=== PATIENT | male | born 1965 ===

== ENCOUNTER 2020-06-25 10:35 | Observation (INO) | payer OTHER, SELFPAY ==
[2020-06-25] MEDS ORDERED: levETIRAcetam 1000 MG/NS 0.75% 1,000 MG/100 ML BAG IV ONE (10:53)
--- NOTE | 2020-06-25 10:55 | Consultation ---
History of Present Illness History of present illness: [facility] Date of Service: 06/25/2020 10:24:18 Impression: R56.9 - Seizures Comments/Sign-Out: Patient with onset of LUE shaking then loss of awareness. He is nearly back to baseline with the exception of a left facial droop - would not pursue a stroke intervention for this mild deficit. Suspect he had a focal onset seizure with secondary generalization - he has a focus for this, as his CT shows large RMCA territory encephalomalacia. Metrics: Last Known Well: 06/25/2020 10:00:00 [facility] Notification Time: 06/25/2020 10:23:52 Arrival Time: 06/25/2020 10:35:00 Stamp Time: 06/25/2020 10:24:18 Time First Login Attempt: 06/25/2020 10:28:00 Video Start Time: 06/25/2020 10:28:00 Symptoms: found down, left-sided weakness NIHSS Start Assessment Time: 06/25/2020 10:36:00 Patient is not a candidate for Alteplase/Activase. Patient was not deemed candidate for Alteplase/Activase thrombolytics because of only minor residual deficits - improving, low suspicion for stroke.. Video End Time: 06/25/2020 10:49:00 CT head showed no acute hemorrhage or acute core infarct. Clinical Presentation is not Suggestive of Large Vessel Occlusive Disease ED Physician notified of diagnostic impression and management plan on 06/25/2020 10:52:00 Our recommendations are outlined below. Recommendations: MRI brain wo if facial droop persists Start Keppra 500mg BID Toxic/metabolic screening Would not pursue EEG, as he has no evidence of active convulsive activity and he has a known substrate for seizure Seizure precautions Lorazepam 1-2mg IV PRN seizure > 5min Routine Consultation with Inhouse Neurology for Follow up Care Sign Out: Discussed with Emergency Department Provider History of Present Illness: Patient is a 54 year old Male. Patient was brought by EMS for symptoms of found down, left-sided weakness Patient brought from home by EMS after being found down by family this morning. 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 Patient also reports a history of seizures since his stroke, with his last one being 2 months ago. Patient does not take any medication or have any routine medical care. He was last normal today at 1000 and then started having involuntary shaking of the left arm. He lost awareness and family found him down. EMS was summoned and he was regaining awareness, but had weakness on the left side, so a stroke alert was called. Examination: BP(138/86), Pulse(128), Blood Glucose(150) 1A: Level of Consciousness - Alert; keenly responsive + 0 1B: Ask Month and Age - Both Questions Right + 0 1C: Blink Eyes & Squeeze Hands - Performs Both Tasks + 0 2: Test Horizontal Extraocular Movements - Normal + 0 3: Test Visual Marcelo - No Visual Loss + 0 4: Test Facial Palsy (Use Grimace if Obtunded) - Partial paralysis (lower face) + 2 5A: Test Left Arm Motor Drift - No Drift for 10 Seconds + 0 5B: Test Right Arm Motor Drift - No Drift for 10 Seconds + 0 6A: Test Left Leg Motor Drift - No Drift for 5 Seconds + 0 6B: Test Right Leg Motor Drift - No Drift for 5 Seconds + 0 7: Test Limb Ataxia (FNF/Heel-Zhou) - No Ataxia + 0 8: Test Sensation - Normal; No sensory loss + 0 9: Test Language/Aphasia - Normal; No aphasia + 0 10: Test Dysarthria - Normal + 0 11: Test Extinction/Inattention - No abnormality + 0 NIHSS Score: 2 Patient/Family was informed the Neurology Consult would happen via TeleHealth consult by way of interactive audio and video telecommunications and consented to receiving care in this manner. Due to the immediate potential for life-threatening deterioration due to underlying acute neurologic illness, I spent 30 minutes providing critical care. This time includes time for face to face visit via telemedicine, review of medical records, imaging studies and discussion of findings with providers, the patient and/or family. Dr Perez Narvaez [facility] Case [id number] Medications and Allergies Allergies Allergy/AdvReac Type Severity Reaction Status Date / Time No Known Allergies Allergy Unverified 06/25/20 10:38 Active Meds: Active Medications Levetiracetam (Keppra 1,000 Mg/Ns 0.75% 100ml) 1,000 mg in 100 mls @ 400 mls/hr IV ONCE ONE Stop: 06/25/20 11:07
--- NOTE | 2020-06-25 11:06 | Emergency Department Report ---
HPI - General Time Seen by Provider: 06/25/20 10:53 - HPI HPI: Room 3 The patient is a 54-year-old male present with a chief complaint of left-sided weakness. The patient states he remembers his left arm shaking and then falling to the ground. At approximately 10: 00 family found the patient on the floor at home with left-sided weakness and left facial droop which has been new. The patient had a history of a previous CVA with residual left hand weakness with weakness in the leg is new. ED Past Medical Hx - Past Medical History Hx CVA: Yes (Residual left hand weakness) Hx Seizures: Yes - Surgical History Past Surgical History?: No - Family History Family history: no significant - Social History Smoking Status: Never Smoker Substance Use Type: None (Denies illicit drug use), Alcohol (Occasional) ED Review of Systems ROS: Stated complaint: STROKE Other details as noted in HPI Constitutional: no symptoms reported Eyes: denies: eye pain ENT: denies: throat pain Respiratory: no symptoms reported Cardiovascular: denies: chest pain Endocrine: no symptoms reported Gastrointestinal: denies: abdominal pain Genitourinary: denies: dysuria Musculoskeletal: denies: back pain Neurological: weakness Physical Exam - Physical Exam Physical Exam: GENERAL: The patient is well-developed well-nourished male lying on stretcher not appearing to be in acute distress. [] HEENT: Normocephalic. Atraumatic. Extraocular motions are intact. Patient has moist mucous membranes. NECK: Supple. Trachea midline CHEST/LUNGS: Clear to auscultation. There is no respiratory distress noted. HEART/CARDIOVASCULAR: Regular. There is no tachycardia. There is no gallop rub or murmur. ABDOMEN: Abdomen is soft, nontender. Patient has normal bowel sounds. There is no abdominal distention. SKIN: There is no rash. There is no edema. There is no diaphoresis. NEURO: The patient is awake, alert, and oriented. The patient is cooperative. Cranial nerves II through XII grossly intact with exception of cranial nerve VII on the left and cranial nerve XII (tongue deviates left when protruded). The patient has normal speech. Moves all extremities well. Sensation to light touch equal bilaterally. GCS 15 MUSCULOSKELETAL: There is no evidence of acute injury. ED Medical Decision Making - Lab Data Result diagrams: 06/25/20 10:56 06/25/20 10:56 Laboratory Tests 06/25/20 06/25/20 06/25/20 10:56 10:56 10:56 WBC 7.4 RBC 4.40 Hgb 14.4 Hct 41.8 MCV 95 H MCH 33 H MCHC 35 H RDW 13.2 Plt Count 175 Lymph % (Auto) 17.6 [place] % (Auto) 5.3 Eos % (Auto) 0.7 Baso % (Auto) 0.4 Lymph # (Auto) 1.3 [place] # (Auto) 0.4 Eos # (Auto) 0.1 Baso # (Auto) 0.0 Seg Neutrophils % 76.0 H Seg Neutrophils # 5.6 PT 13.6 INR 1.05 APTT 23.1 L Sodium 137 Potassium 3.9 Chloride 99.5 Carbon Dioxide 24 Anion Gap 17 BUN 9 Creatinine 0.9 Estimated GFR > 60 BUN/Creatinine Ratio 10 Glucose 235 H POC Glucose Calcium 9.1 Troponin T < 0.010 06/25/20 11:18 WBC RBC Hgb Hct MCV MCH MCHC RDW Plt Count Lymph % (Auto) [place] % (Auto) Eos % (Auto) Baso % (Auto) Lymph # (Auto) [place] # (Auto) Eos # (Auto) Baso # (Auto) Seg Neutrophils % Seg Neutrophils # PT INR APTT Sodium Potassium Chloride Carbon Dioxide Anion Gap BUN Creatinine Estimated GFR BUN/Creatinine Ratio Glucose POC Glucose 201 H Calcium Troponin T - EKG Data -: EKG Interpreted by Nh EKG shows normal: sinus rhythm Rate: tachycardia (116 bpm) - EKG Data When compared to previous EKG there are: previous EKG unavailable Interpretation: other (No ischemic changes seen) - Radiology Data Radiology results: report reviewed (CT head), image reviewed (CT head) Findings [facility] [address] [place] [address] Cat Scan Report Signed Patient: DOLYE SHOEMAKER MR#: [id number] : 1965 Acct:[id number] Age/Sex: 54 / M ADM Date: 06/25/20 Loc: ED Attending Dr: Ordering Physician: LUIS ALBERTO NORTON MD Date of Service: 06/25/20 Procedure(s): CT head/brain wo con Accession Number(s): [id number] cc: LUIS ALBEROT NORTON MD NONENHANCED CT SCAN OF THE HEAD: INDICATION / CLINICAL INFORMATION: 54 years Male; neuro deficits <6 hours TECHNIQUE: Routine CT head without contrast. All CT scans at this location are performed using CT dose reduction for ALARA by means of automated exposure control. COMPARISON: None. FINDINGS: BRAIN / INTRACRANIAL CONTENTS: Right frontal craniotomy; encephalomalacia in the right temporal lobe, right putamen and in the right frontal lobe. No acute hemorrhage, mass effect, midline shift, hydrocephalus, or acute, large territorial infarct. No chronic infarct or focal atrophy. Normal brain volume and ventricular/sulcal size for age. No significant white matter abnormality. CRANIOCERVICAL JUNCTION: No significant abnormality. ORBITS: No significant abnormality of visualized orbits. SINUSES / MASTOIDS: No significant abnormality ADDITIONAL FINDINGS: None. IMPRESSION: Encephalomalacia in the right cerebral hemisphere; no CT findings to suggest acute territorial infarction; no hemorrhage or stroke mimics CODE STROKE: Time of Communication (REGIONAL COORDINATOR/CDT): 10:34 AM Central standard time Licensed Practitioner Receiving Report: ER physician Signer Name: Emily Brown MD Signed: 06/25/2020 11:37 AM Workstation Name: [id number] Transcribed By: BS Dictated By: Emily Alvarez MD Jennifer ctronically Authenticated By: Emily Alvarez MD Signed Date/Time: 06/25/20 1137 DD/ 1128 TD/TT: - Differential Diagnosis Seizure, Harsh's paralysis, CVA, TIA Critical care attestation.: If time is entered above; I have spent that time in minutes in the direct care of this critically ill patient, excluding procedure time. ED Disposition Clinical Impression: Left-sided weakness Disposition: DC-09 OP ADMIT IP TO THIS HOSP Is pt being admited?: Yes Does the pt Need Aspirin: Yes Condition: Fair Time of Disposition: 11:48 (Hospitalist paged 9Dr Taco))
[2020-06-25 11:14] LABS: Basophils % (Auto) 0.4 % (0.0-1.8); Eosinophils # (Auto) 0.1 K/mm3 (0.0-0.4); Eosinophils % (Auto) 0.7 % (0.0-4.3); Hematocrit 41.8 % (35.5-45.6); Hemoglobin 14.4 gm/dl (11.8-15.2); Lymphocytes # (Auto) 1.3 K/mm3 (1.2-5.4); Lymphocytes % (Auto) 17.6 % (13.4-35.0); Mean Corpuscular HGB Conc 35 % (32-34); Mean Corpuscular Volume 95 fl (84-94); Monocytes # (Auto) 0.4 K/mm3 (0.0-0.8); Monocytes % (Auto) 5.3 % (0.0-7.3); Platelet Count 175 K/mm3 (140-440); Red Cell Distribution Width 13.2 % (13.2-15.2)
[2020-06-25 11:23] LABS: INR 1.05 (0.87-1.13); Partial Thromboplastin Time 23.1 Sec. (24.2-36.6)
[2020-06-25 11:28] LABS: BUN/Creatinine Ratio 10; Blood Urea Nitrogen 9 mg/dL (9-20); Calcium 9.1 mg/dL (8.4-10.2); Hemolysis Index 11
--- NOTE | 2020-06-25 11:41 | Cat Scan Report ---
NONENHANCED CT SCAN OF THE HEAD: INDICATION / CLINICAL INFORMATION: 54 years Male; neuro deficits <6 hours TECHNIQUE: Routine CT head without contrast. All CT scans at this location are performed using CT dos e reduction for ALARA by means of automated exposure control. COMPARISON: None. FINDINGS: BRAIN / INTRACRANIAL CONTENTS: Right frontal craniotomy; encephalomalacia in the right temporal lobe, right putamen and in the right frontal lobe. No acute hemorrhage, mass effect, midline shift, hydroc ephalus, or acute, large territorial infarct. No chronic infarct or focal atrophy. Normal brain volum e and ventricular/sulcal size for age. No significant white matter abnormality. CRANIOCERVICAL JUNCTION: No significant abnormality. ORBITS: No significant abnormality of visualized orbits. SINUSES / MASTOIDS: No significant abnormality ADDITIONAL FINDINGS: None. IMPRESSION: Encephalomalacia in the right cerebral hemisphere; no CT findings to suggest acute territorial infarc tion; no hemorrhage or stroke mimics CODE STROKE: Time of Communication (INTEGRATED PEST MANAGEMENT TECHNICIAN/CDT): 10:34 AM Central standard time Licensed Practitioner Receiving Report: ER physician Signer Name: Emily Brown MD Signed: 06/25/2020 11:37 AM Workstation Name: [email or web address]
[2020-06-25] MEDS ORDERED: ASPIRIN 325 MG TAB PO ONE (11:48)
--- NOTE | 2020-06-26 | History and Physical Report ---
History of Present Illness Date of examination: 06/25/20 Date of admission: 06/25/20 12:02 Chief complaint: L sdided weaknesss since 10 am History of present illness: The patient is a 54-year-old male present with a chief complaint of left-sided weakness. The patient states he remembers his left arm shaking and then falling to the ground. At approximately 10: 00 family found the patient on the floor at home with left-sided weakness and left facial droop which has been new. The patient had a history of a previous CVA with residual left hand weakness with weakness in the leg is new. - Past Medical History Hx CVA: Yes (Residual left hand weakness) Hx Seizures: Yes - Surgical History Past Surgical History?: No - Family History Family history: no significant - Social History Smoking Status: Never Smoker Substance Use Type: None (Denies illicit drug use), Alcohol (Occasional) Review of Systems ROS: Stated complaint: STROKE Other details as noted in HPI Constitutional: no symptoms reported Eyes: denies: eye pain ENT: denies: throat pain Respiratory: no symptoms reported Cardiovascular: denies: chest pain Endocrine: no symptoms reported Gastrointestinal: denies: abdominal pain Genitourinary: denies: dysuria Musculoskeletal: denies: back pain Neurological: weakness Medications and Allergies Allergies Allergy/AdvReac Type Severity Reaction Status Date / Time No Known Allergies Allergy Verified 06/26/20 00:09 Home Medications Medication Instructions Recorded Confirmed Last Taken Type No Known Home Medications [No 06/25/20 06/25/20 Unknown History Reported Home Medications] Exam - Constitutional Vitals: Temp Pulse Resp BP Pulse Ox 97.9 F 87 17 174/95 98 06/25/20 23:37 06/25/20 19:08 06/25/20 23:37 06/25/20 23:37 06/25/20 21:00 General appearance: Present: no acute distress, well-nourished - EENT Eyes: Present: PERRL ENT: hearing intact, clear oral mucosa - Neck Neck: Present: supple, normal ROM - Respiratory Respiratory effort: normal Respiratory: bilateral: CTA - Cardiovascular Heart rate: 78 Rhythm: regular Heart Sounds: Present: S1 & S2. Absent: rub, click - Extremities Extremities: no ischemia, pulses intact, pulses symmetrical, No edema Peripheral Pulses: within normal limits - Abdominal General gastrointestinal: Present: soft, non-tender, non-distended, normal bowel sounds Male genitourinary: Present: normal - Integumentary Integumentary: Present: clear, warm, dry - Musculoskeletal Musculoskeletal: left sided weakness - Psychiatric Psychiatric: appropriate mood/affect, intact judgment & insight, cooperative - Neurologic Neurologic: CNII-XII intact, focal deficits (L hemiplegia), moves all extremities - Allied Health Allied health notes reviewed: nursing, case management HEART Score - HEART Score History: Slightly suspicious EKG: Non-specific Age: 45-65 Risk factors: 1-2 risk factors Troponin: Troponin T < 0.010 ng/mL (0.00-0.029) 06/25/20 10:56 Troponin: < normal limit HEART Score: 3 - Critical Actions Critical Actions: 0-3 pts:0.9-1.7%risk of adverse cardiac event.Candidate for discharge Results - Labs CBC & Chem 7: 06/25/20 10:56 06/25/20 10:56 Labs: Laboratory Last Values WBC 7.4 K/mm3 (4.5-11.0) 06/25/20 10:56 RBC 4.40 M/mm3 (3.65-5.03) 06/25/20 10:56 Hgb 14.4 gm/dl (11.8-15.2) 06/25/20 10:56 Hct 41.8 % (35.5-45.6) 06/25/20 10:56 MCV 95 fl (84-94) H 06/25/20 10:56 MCH 33 pg (28-32) H 06/25/20 10:56 MCHC 35 % (32-34) H 06/25/20 10:56 RDW 13.2 % (13.2-15.2) 06/25/20 10:56 Plt Count 175 K/mm3 (140-440) 06/25/20 10:56 Lymph % (Auto) 17.6 % (13.4-35.0) 06/25/20 10:56 [place] % (Auto) 5.3 % (0.0-7.3) 06/25/20 10:56 Eos % (Auto) 0.7 % (0.0-4.3) 06/25/20 10:56 Baso % (Auto) 0.4 % (0.0-1.8) 06/25/20 10:56 Lymph # (Auto) 1.3 K/mm3 (1.2-5.4) 06/25/20 10:56 [place] # (Auto) 0.4 K/mm3 (0.0-0.8) 06/25/20 10:56 Eos # (Auto) 0.1 K/mm3 (0.0-0.4) 06/25/20 10:56 Baso # (Auto) 0.0 K/mm3 (0.0-0.1) 06/25/20 10:56 Seg Neutrophils % 76.0 % (40.0-70.0) H 06/25/20 10:56 Seg Neutrophils # 5.6 K/mm3 (1.8-7.7) 06/25/20 10:56 PT 13.6 Sec. (12.2-14.9) 06/25/20 10:56 INR 1.05 (0.87-1.13) 06/25/20 10:56 APTT 23.1 Sec. (24.2-36.6) L 06/25/20 10:56 Sodium 137 mmol/L (137-145) 06/25/20 10:56 Potassium 3.9 mmol/L (3.6-5.0) 06/25/20 10:56 Chloride 99.5 mmol/L (98-107) 06/25/20 10:56 Carbon Dioxide 24 mmol/L (22-30) 06/25/20 10:56 Anion Gap 17 mmol/L 06/25/20 10:56 BUN 9 mg/dL (9-20) 06/25/20 10:56 Creatinine 0.9 mg/dL (0.8-1.3) 06/25/20 10:56 Estimated GFR > 60 ml/min 06/25/20 10:56 BUN/Creatinine Ratio 10 % 06/25/20 10:56 Glucose 235 mg/dL (75-100) H 06/25/20 10:56 POC Glucose 114 mg/dL (70-105) H 06/25/20 22:09 Calcium 9.1 mg/dL (8.4-10.2) 06/25/20 10:56 Troponin T < 0.010 ng/mL (0.00-0.029) 06/25/20 10:56 Short CBC 06/25/20 Range/Units 10:56 WBC 7.4 (4.5-11.0) K/mm3 Hgb 14.4 (11.8-15.2) gm/dl Hct 41.8 (35.5-45.6) % Plt Count 175 (140-440) K/mm3 BMP 06/25/20 10:56 Sodium 137 Potassium 3.9 Chloride 99.5 Carbon Dioxide 24 BUN 9 Creatinine 0.9 Glucose 235 H Calcium 9.1 Cardiac Enzymes 06/25/20 Range/Units 10:56 Troponin T < 0.010 (0.00-0.029) ng/mL - Imaging and Cardiology EKG: report reviewed CT Scan - head: report reviewed (NAF.Encephalomalacia rt side of brain) Assessment and Plan Advance Directives: Yes (Full code) Plan of care discussed with patient/family: Yes - Patient Problems (1) Acute CVA (cerebrovascular accident) Current Visit: Yes Status: Acute Plan to address problem: CVA protocol MRI/Echo/CDS High intensity statins Neuro consult PT/OT (2) Hypertension Current Visit: Yes Status: Chronic Qualifiers: Hypertension type: essential hypertension Qualified Code(s): I10 - Essential (primary) hypertension Plan to address problem: Initiated on Valsartan bid (3) Seizure disorder Current Visit: Yes Status: Chronic Plan to address problem: By history Not on any medication (4) DVT prophylaxis Current Visit: Yes Status: Acute Plan to address problem: On Heparin and GI prophylaxis
[2020-06-26] MEDS ORDERED: oxyCODONE /ACETAMINOPHEN 5-325MG TAB PO PRN (00:02)
[2020-06-26] MEDS ORDERED: HYDROmorphone 1 MG/1 ML INJ IV PRN (00:02)
[2020-06-26] MEDS ORDERED: ONDANSETRON 4 MG/2 ML INJ IV PRN (00:02)
[2020-06-26] MEDS ORDERED: ACETAMINOPHEN 325 MG TAB PO PRN (00:02)
[2020-06-26] MEDS: HEPARIN 5,000 UNIT/1 ML VIAL SUB-Q SCH ×2 (09:33→21:42)
[2020-06-26] MEDS: ASPIRIN 325 MG TAB PO SCH (09:33)
[2020-06-26] MEDS: VALSARTAN 160MG TAB PO SCH ×2 (09:33→21:39)
--- NOTE | 2020-06-26 09:43 | Progress Note ---
Assessment and Plan Assessment and plan: (1) Acute CVA (cerebrovascular accident) Current Visit: Yes Status: Acute Plan to address problem: CVA protocol MRI/Echo/CDS High intensity statins Neuro consult PT/OT (2) Hypertension Current Visit: Yes Status: Chronic Qualifiers: Hypertension type: essential hypertension Qualified Code(s): I10 - Essential (primary) hypertension Plan to address problem: Initiated on Valsartan bid (3) Seizure disorder Current Visit: Yes Status: Chronic Plan to address problem: By history Not on any medication (4) DVT prophylaxis Current Visit: Yes Status: Acute Plan to address problem: On Heparin and GI prophylaxis 06/26/2020; patient symptoms resolved, CT head was negative, MRI, echo and carotid Doppler is pending. Neurology consult is pending. Patient will be dis charged once work-up is completed. Patient is going to have COVID-19 test. History Interval history: Patient was seen and evaluated this morning Patient symptoms resolved Patient does not speak Luxembourgish and I use language line motor vehicle representative #[id number] and explained in detail about the need for MRI, echo and carotid Doppler to be done for discharge. Patient insisted to go home. Patient convince her to stay and finish work-up Hospitalist Physical - Physical exam Narrative exam: Not in cardiopulmonary distress. The patient appeared well nourished and normally developed. Vital signs as documented. Head exam is unremarkable. No scleral icterus . Neck is without jugular venous distension, thyromegaly, or carotid bruits. Lungs are clear to auscultation. Cardiac exam reveals regular rate and Rhythm. Abdominal exam reveals normal bowel sounds, nontender, no organomegaly. Extremities are nonedematous and both femoral and pedal pulses are normal. CREMATOR: Alert and oriented 3. No focal neurologic deficit - Constitutional Vitals: Temp Pulse Resp BP Pulse Ox 98.0 F 83 20 175/95 98 06/26/20 07:46 06/26/20 09:15 06/26/20 08:37 06/26/20 09:15 06/26/20 09:23 General appearance: Present: no acute distress, well-nourished HEART Score - HEART Score EKG: Non-specific Age: 45-65 Risk factors: 1-2 risk factors Troponin: Troponin T < 0.010 ng/mL (0.00-0.029) 06/25/20 10:56 Troponin: < normal limit - Critical Actions Critical Actions: 0-3 pts:0.9-1.7%risk of adverse cardiac event.Candidate for discharge Results - Labs CBC & Chem 7: 06/25/20 10:56 06/25/20 10:56 Labs: Laboratory Last Values WBC 7.4 K/mm3 (4.5-11.0) 06/25/20 10:56 RBC 4.40 M/mm3 (3.65-5.03) 06/25/20 10:56 Hgb 14.4 gm/dl (11.8-15.2) 06/25/20 10:56 Hct 41.8 % (35.5-45.6) 06/25/20 10:56 MCV 95 fl (84-94) H 06/25/20 10:56 MCH 33 pg (28-32) H 06/25/20 10:56 MCHC 35 % (32-34) H 06/25/20 10:56 RDW 13.2 % (13.2-15.2) 06/25/20 10:56 Plt Count 175 K/mm3 (140-440) 06/25/20 10:56 Lymph % (Auto) 17.6 % (13.4-35.0) 06/25/20 10:56 [place] % (Auto) 5.3 % (0.0-7.3) 06/25/20 10:56 Eos % (Auto) 0.7 % (0.0-4.3) 06/25/20 10:56 Baso % (Auto) 0.4 % (0.0-1.8) 06/25/20 10:56 Lymph # (Auto) 1.3 K/mm3 (1.2-5.4) 06/25/20 10:56 [place] # (Auto) 0.4 K/mm3 (0.0-0.8) 06/25/20 10:56 Eos # (Auto) 0.1 K/mm3 (0.0-0.4) 06/25/20 10:56 Baso # (Auto) 0.0 K/mm3 (0.0-0.1) 06/25/20 10:56 Seg Neutrophils % 76.0 % (40.0-70.0) H 06/25/20 10:56 Seg Neutrophils # 5.6 K/mm3 (1.8-7.7) 06/25/20 10:56 PT 13.6 Sec. (12.2-14.9) 06/25/20 10:56 INR 1.05 (0.87-1.13) 06/25/20 10:56 APTT 23.1 Sec. (24.2-36.6) L 06/25/20 10:56 Thrombin Time 15.9 Sec. (15.1-19.6) 06/25/20 10:56 Sodium 137 mmol/L (137-145) 06/25/20 10:56 Potassium 3.9 mmol/L (3.6-5.0) 06/25/20 10:56 Chloride 99.5 mmol/L (98-107) 06/25/20 10:56 Carbon Dioxide 24 mmol/L (22-30) 06/25/20 10:56 Anion Gap 17 mmol/L 06/25/20 10:56 BUN 9 mg/dL (9-20) 06/25/20 10:56 Creatinine 0.9 mg/dL (0.8-1.3) 06/25/20 10:56 Estimated GFR > 60 ml/min 06/25/20 10:56 BUN/Creatinine Ratio 10 % 06/25/20 10:56 Glucose 235 mg/dL (75-100) H 06/25/20 10:56 POC Glucose 143 mg/dL (70-105) H 06/26/20 07:44 Hemoglobin A1c 6.8 % (4-6) H 06/25/20 10:56 Calcium 9.1 mg/dL (8.4-10.2) 06/25/20 10:56 Troponin T < 0.010 ng/mL (0.00-0.029) 06/25/20 10:56 Bernal/IV: Voiding Method Urinal IV Catheter Type [Right Peripheral IV Antecubital] Active Medications - Current Medications Current Medications: Generic Name Dose Route Start Last Admin Trade Name Freq PRN Reason Stop Dose Admin Acetaminophen 650 mg 06/26/20 00:02 Tylenol PO Q4H PRN Pain MILD(1-3)/Fever >100.5/RESENDEZ Aspirin 325 mg 06/26/20 10:00 Aspirin PO QDAY [facility] Atorvastatin Calcium 40 mg 06/26/20 22:00 Lipitor PO QHS [facility] Famotidine 20 mg 06/26/20 10:00 Pepcid IV BID [facility] Heparin Sodium (Porcine) 5,000 unit 06/26/20 10:00 Heparin SUB-Q Q12HR [facility] Hydromorphone HCl 0.5 mg 06/26/20 00:02 Dilaudid IV Q3H PRN Pain , Severe (7-10) Ondansetron HCl 4 mg 06/26/20 00:02 Zofran IV Q8H PRN Nausea And Vomiting Oxycodone/Acetaminophen 1 tab 06/26/20 00:02 Percocet 5/325 PO Q6H PRN Pain, Moderate (4-6) Sodium Chloride 10 ml 06/26/20 10:00 Sodium Chloride Flush Syringe 10 Ml IV BID [facility] Sodium Chloride 10 ml 06/26/20 00:02 Sodium Chloride Flush Syringe 10 Ml IV PRN PRN LINE FLUSH Valsartan 160 mg 06/26/20 08:00 Diovan PO BID [facility]
[2020-06-26] MEDS ORDERED: FAMOTIDINE 20 MG/2 ML INJ IV SCH (10:00)
--- NOTE | 2020-06-26 15:45 | Vascular Lab Report ---
BILATERAL CAROTID DUPLEX DOPPLER ULTRASOUND HISTORY: stroke COMPARISON: None. TECHNIQUE: Pollard scale, color and spectral Doppler imaging was performed of the extracranial neck yohannes eula. All stenosis measurements were obtained in comparison with the distal internal carotid artery per the SRU consensus criteria. FINDINGS: RIGHT NECK ARTERIES: CCA: Mild atherosclerotic plaque at the carotid bulb and bifurcation. ICA: Mild atherosclerotic plaque at the proximal portion. ECA: No significant abnormality. Vertebral Artery: No significant abnormality. Antegrade flow. LEFT NECK ARTERIES: CCA: Mild atherosclerotic plaque at the carotid bulb and bifurcation. ICA: Mild atherosclerotic plaque at the proximal portion. ECA: No significant abnormality. Vertebral Artery: No significant abnormality. Antegrade flow. CCA PSV: Right: 72 Left: 79 cm/sec ICA PSV: Right: 58 Left: 83 cm/sec ICA/CCA: Right: 0.8 Left 1.1 ADDITIONAL FINDINGS: None. IMPRESSION: 1. Mild atherosclerotic plaque in the distal CCA/proximal ICA, bilaterally. No hemodynamically signif icant stenosis. Estimated stenosis is 0-50%, bilaterally. Signer Name: Jonas Mendez MD Signed: 06/26/2020 3:40 PM Workstation Name: [id number]
--- NOTE | 2020-06-26 16:25 | Magnetic Resonance Report ---
MRI BRAIN 06/26/2020 INDICATION / CLINICAL INFORMATION: stroke. No additional information provided. TECHNIQUE: Multiplanar, multisequence MR images of the brain were obtained. COMPARISON: None available. FINDINGS: BRAIN / INTRACRANIAL CONTENTS: Unenhanced MR images of the brain dated straight no evidence of acute abnormality. There is evidence of prior right-sided craniotomy, with underlying encephalomalacia involving portion s of the right temporal and parietal lobes. Diffuse atrophic changes are present.A few punctate foci of hemosiderin deposition are present within the thalami bilaterally There is no evidence of acute ischemic injury, hemorrhage, or mass. There are no abnormal extra-axial fluid collections. EXTRACRANIAL: Unremarkable CRANIOCERVICAL JUNCTION: No significant abnormality. VASCULAR FLOW-VOIDS: No significant abnormality. IMPRESSION: Postoperative changes with right-sided encephalomalacia. No evidence of acute ischemic injury. Signer Name: Cristobal Virk MD Signed: 06/26/2020 4:20 PM Workstation Name: [email or web address]
[2020-06-26] MEDS: levETIRAcetam 500 MG TAB PO SCH ×2 (17:48→21:38)
--- NOTE | 2020-06-26 17:51 | Consultation ---
History of Present Illness Consult date: 06/26/20 Chief complaint: Seizure History of present illness: History of present illness: The patient is a 54-year-old male present with a chief complaint of left-sided weakness. The patient states he remembers his left arm shaking and then falling to the ground. At approximately 10: 00 family found the patient on the floor at home with left-sided weakness and left facial droop which has been new. The patient had a history of a previous CVA with residual left hand weakness with weakness in the leg is new. Patient needed a interpretor, since the past 24 hours - no event no side effects . Not on any Seizure Medication at home . Medications and Allergies Allergies Allergy/AdvReac Type Severity Reaction Status Date / Time No Known Allergies Allergy Verified 06/26/20 00:09 Home Medications Medication Instructions Recorded Confirmed Last Taken Type No Known Home Medications [No 06/25/20 06/25/20 Unknown History Reported Home Medications] Active Meds: Active Medications Acetaminophen (Tylenol) 650 mg PO Q4H PRN PRN Reason: Pain MILD(1-3)/Fever >100.5/RESENDEZ Aspirin (Aspirin) 325 mg PO QDAY [facility] Last Admin: 06/26/20 09:33 Dose: 325 mg Documented by: Atorvastatin Calcium (Lipitor) 40 mg PO QHS [facility] Famotidine (Pepcid) 20 mg PO BID [facility] Heparin Sodium (Porcine) (Heparin) 5,000 unit SUB-Q Q12HR [facility] Last Admin: 06/26/20 09:33 Dose: 5,000 unit Documented by: Hydromorphone HCl (Dilaudid) 0.5 mg IV Q3H PRN PRN Reason: Pain , Severe (7-10) Levetiracetam (Keppra) 500 mg PO BID [facility] Ondansetron HCl (Zofran) 4 mg IV Q8H PRN PRN Reason: Nausea And Vomiting Oxycodone/Acetaminophen (Percocet 5/325) 1 tab PO Q6H PRN PRN Reason: Pain, Moderate (4-6) Sodium Chloride (Sodium Chloride Flush Syringe 10 Ml) 10 ml IV BID [facility] Last Admin: 06/26/20 09:34 Dose: 10 ml Documented by: Sodium Chloride (Sodium Chloride Flush Syringe 10 Ml) 10 ml IV PRN PRN PRN Reason: LINE FLUSH Valsartan (Diovan) 160 mg PO BID [facility] Last Admin: 06/26/20 09:33 Dose: 160 mg Documented by: Physical Examination - Vital Signs Vital Signs: Vital Signs Temp Pulse Resp BP Pulse Ox 98.3 F 124 H 18 190/99 94 06/25/20 10:50 06/25/20 10:50 06/25/20 10:50 06/25/20 10:50 06/25/20 10:50 - Physical Exam Narrative exam: The patient is alert , moves all 4 extremity ,gait normal. Results - Laboratory Findings CBC and BMP: 06/25/20 10:56 06/25/20 10:56 Abnormal Lab Findings: Abnormal Labs 06/25/20 06/25/20 06/25/20 10:56 10:56 10:56 MCV 95 H MCH 33 H MCHC 35 H Seg Neutrophils % 76.0 H APTT 23.1 L Glucose 235 H POC Glucose Hemoglobin A1c 06/25/20 06/25/20 06/25/20 10:56 11:18 22:09 MCV MCH MCHC Seg Neutrophils % APTT Glucose POC Glucose 201 H 114 H Hemoglobin A1c 6.8 H 06/26/20 06/26/20 06/26/20 07:44 11:54 16:07 MCV MCH MCHC Seg Neutrophils % APTT Glucose POC Glucose 143 H 164 H 262 H Hemoglobin A1c Assessment and Plan 1. 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 2. Reviewed Neuroimaging Study . 3. Continue Keppra 500 mg BID and he needs a out patient follow closely with Neurology to prevent rehospitalization. 4. No driving for 6 months - this is very important to understand. Dr. Raj TAMAYO
[2020-06-26] MEDS: hydrALAZINE 20 MG/1 ML INJ IV SCH ×2 (18:40→21:43)
[2020-06-26] MEDS: FAMOTIDINE 20 MG TAB PO SCH (21:39)
[2020-06-27] MEDS: hydrALAZINE 20 MG/1 ML INJ IV SCH ×3 (02:00→09:18)
[2020-06-27 06:31] LABS: Basophils % (Auto) 0.9 % (0.0-1.8); Eosinophils # (Auto) 0.1 K/mm3 (0.0-0.4); Eosinophils % (Auto) 2.5 % (0.0-4.3); Hemoglobin 13.7 gm/dl (11.8-15.2); Lymphocytes # (Auto) 1.7 K/mm3 (1.2-5.4); Lymphocytes % (Auto) 28.6 % (13.4-35.0); Mean Corpuscular HGB Conc 34 % (32-34); Mean Corpuscular Volume 94 fl (84-94); Monocytes # (Auto) 0.7 K/mm3 (0.0-0.8); Monocytes % (Auto) 12.7 % (0.0-7.3); Platelet Count 177 K/mm3 (140-440); Red Blood Count 4.24 M/mm3 (3.65-5.03); Red Cell Distribution Width 12.9 % (13.2-15.2)
[2020-06-27 06:43] LABS: Alanine Aminotransferase 15 units/L (7-56); Albumin 3.8 g/dL (3.9-5); BUN/Creatinine Ratio 15; Blood Urea Nitrogen 12 mg/dL (9-20); Calcium 9.1 mg/dL (8.4-10.2); Chol/HDL Ratio 2.69 %; HDL Cholesterol 71 mg/dL (40-59); Hemolysis Index 4; LDL Cholesterol,Direct 117 mg/dL (50-130)
--- NOTE | 2020-06-27 09:00 | Discharge Summary ---
Providers - Providers Date of Admission: 06/25/20 12:02 Date of discharge: 06/27/20 Attending physician: AISHWARYA COVARRUBIAS MD 06/26/20 00:02 Consult to Physician [CONS] Routine Comment: Consulting Provider: WOODROW PYLE Physician Instructions: Reason For Exam: Acute CVA 06/26/20 00:04 Occupational Therapy Evaluate and Treat [CONS] Routine Comment: Reason For Exam: Neuro deficits Physical Therapy Evaluation and Treat [CONS] Routine Comment: Reason For Exam: Neuro deficits 06/26/20 00:06 Occupational Therapy Evaluate and Treat [CONS] Routine Comment: Reason For Exam: Neuro deficits Physical Therapy Evaluation and Treat [CONS] Routine Comment: Reason For Exam: Neuro deficits Primary care physician: SUPERVISOR DOPING Hospitalization Reason for admission: TIA, hypertension, seizure disorder Condition: Fair Hospital course: The patient is a 54-year-old male present with a chief complaint of left-sided weakness. The patient states he remembers his left arm shaking and then falling to the ground. At approximately 10: 00 family found the patient on the floor at home with left-sided weakness and left facial droop which has been new. The patient had a history of a previous CVA with residual left hand weakness with weakness in the leg is new. (1) Acute CVA (cerebrovascular accident) Current Visit: Yes Status: Acute Plan to address problem: CVA protocol MRI/Echo/CDS; unremarkable High intensity statins Neuro consult appreciated PT/OT; no need (2) Hypertension Current Visit: Yes Status: Chronic Qualifiers: Hypertension type: essential hypertension Qualified Code(s): I10 - Essential (primary) hypertension Plan to address problem: Initiated on Valsartan bid and amlodipine (3) Seizure disorder Current Visit: Yes Status: Chronic Plan to address problem: By history Patient discharged with Keppra per neurology recommendation (4) DVT prophylaxis Current Visit: Yes Status: Acute Plan to address problem: On Heparin and GI prophylaxis 06/26/2020; patient symptoms resolved, CT head was negative, MRI, echo and carotid Doppler is pending. Neurology consult is pending. Patient will be discharged once work-up is completed. Patient is going to have COVID-19 test. 06/27/2020; CVA work-up was negative. COVID-19 test is negative. Patient has seizure disorder and neurology recommend to continue with Keppra, patient advised not to drive for the next 6 months. Patient advised to have follow-up with primary care physician and neurology. Patient was hemodynamically stable at time of discharge. Appropriate medication scripts were given at the time of discharge. Disposition: DC-01 TO HOME OR SELFCARE Time spent for discharge: 32 minutes - Discharge Diagnoses (1) TIA (transient ischemic attack) Status: Acute (2) Left-sided weakness Status: Acute (3) Hypertension Status: Chronic Qualifiers: Hypertension type: essential hypertension Qualified Code(s): I10 - Essential (primary) hypertension (4) Seizure disorder Status: Chronic Core Measure Documentation - Palliative Care Palliative Care/ Comfort Measures: Not Applicable - Core Measures Any of the following diagnoses?: none Exam - Physical Exam Narrative exam: Not in cardiopulmonary distress. The patient appeared well nourished and normally developed. Vital signs as documented. Head exam is unremarkable. No scleral icterus . Neck is without jugular venous distension, thyromegaly, or carotid bruits. Lungs are clear to auscultation. Cardiac exam reveals regular rate and Rhythm. Abdominal exam reveals normal bowel sounds, nontender, no organomegaly. Extremities are nonedematous and both femoral and pedal pulses are normal. 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 No focal neurologic deficit - Constitutional Vitals: Temp Pulse Resp BP Pulse Ox 98.0 F 89 19 150/87 97 06/27/20 07:32 06/27/20 08:34 06/27/20 08:34 06/27/20 07:32 06/27/20 07:32 Plan Activity: no restrictions Weight Bearing Status: Full Weight Bearing Diet: low salt Follow up with: PRIMARY CAREMD [Primary Care Provider] - 7 Days Prescriptions: AtorvaSTATin [Lipitor] 40 mg PO QHS #30 tablet Aspirin [Adult Aspirin] 81 mg PO DAILY #30 tablet. amLODIPine 10 mg PO DAILY #30 tab Valsartan [Diovan] 160 mg PO BID #30 tablet levETIRAcetam [Keppra TAB] 500 mg PO BID #60 tablet
[2020-06-27] MEDS: levETIRAcetam 500 MG TAB PO SCH (09:16)
[2020-06-27] MEDS: VALSARTAN 160MG TAB PO SCH (09:16)
[2020-06-27 09:17] VITALS: BP 147/89
[2020-06-27] MEDS: HEPARIN 5,000 UNIT/1 ML VIAL SUB-Q SCH (09:17)
[2020-06-27] MEDS: FAMOTIDINE 20 MG TAB PO SCH (09:17)
[2020-06-27] MEDS: ASPIRIN 325 MG TAB PO SCH (09:17)
[2020-06-27] MEDS ORDERED: hydrALAZINE 20 MG/1 ML INJ IV PRN (12:00)
== END 2020-06-27 13:38 | disposition home or self-care (01) ==
LOC: ED 10:35 → 4A 12:02
PROVIDERS: ADMIT Internal Medicine; ATTEND Internal Medicine
DX: I69.354 Hemiplegia and hemiparesis following cerebral infarction affecting left non-dominant side (principal); Z20.828 Contact with and (suspected) exposure to other viral communicable diseases; G45.9 Transient cerebral ischemic attack, unspecified; I10 Essential (primary) hypertension; G40.909 Epilepsy, unspecified, not intractable, without status epilepticus; Z79.899 Other long term (current) drug therapy
CPT/HCPCS: 36415; 70450; 70551; 80048; 80053; 80061; 82962; 83036; 84484; 85025; 85610; 85670; 85730; 93005; 93306; 93880; 96372; 96374; 96375; 97116; 97161; 97165; 99285; A9270; G0378; J0360; J1644; J1953; U0003